=== PATIENT | male | born 1990 | race African-American/Black ===

== ENCOUNTER 2021-05-28 11:51 | Emergency (ER) | payer BC, SELFPAY ==
[2021-05-28] MEDS ORDERED: Ketorolac Tromethamine 30 MG/ML VIAL ONE (12:19)
[2021-05-28] MEDS ORDERED: Cyclobenzaprine 10 MG TAB ONE (12:19)
== END 2021-05-28 12:29 | disposition home or self-care (01) ==
LOC: CSHERS 11:51
DX: M25.512 Pain in left shoulder (principal); F17.210 Nicotine dependence, cigarettes, uncomplicated; X50.1XXA Overexertion from prolonged static or awkward postures, initial encounter
CPT/HCPCS: 96372; 99283; J1885

== ENCOUNTER 2021-06-10 14:30 | Emergency (ER) | payer SELFPAY | END 2021-06-10 14:45 | disposition home or self-care (01) | LOC: CSHERS 14:30 | DX: M54.50 Low back pain, unspecified (principal); F17.210 Nicotine dependence, cigarettes, uncomplicated | CPT/HCPCS: 99283 ==

== ENCOUNTER 2021-06-17 14:45 | Emergency (ER) | payer SELFPAY ==
[2021-06-17] MEDS ORDERED: Metoclopramide HCl 10 MG TAB ONE (16:15)
[2021-06-17] MEDS ORDERED: Ibuprofen 200 MG TAB ONE (16:16)
== END 2021-06-17 16:53 | disposition home or self-care (01) ==
LOC: CSHERS 14:45
DX: R51.9 Headache, unspecified (principal); R11.0 Nausea; F17.210 Nicotine dependence, cigarettes, uncomplicated
CPT/HCPCS: 99283

== ENCOUNTER 2021-08-26 13:57 | Emergency (ER) | payer SELFPAY | END 2021-08-26 19:38 | disposition home or self-care (01) | LOC: CSHERS 13:57 | DX: S33.5XXA Sprain of ligaments of lumbar spine, initial encounter (principal); F17.210 Nicotine dependence, cigarettes, uncomplicated; X58.XXXA Exposure to other specified factors, initial encounter | CPT/HCPCS: 99283 ==

== ENCOUNTER 2021-12-21 14:16 | Emergency (ER) | payer SELFPAY ==
[2021-12-21] MEDS ORDERED: Ketorolac Tromethamine 30 MG/ML VIAL ONE (16:42)
[2021-12-21] MEDS ORDERED: Boostrix 0.5 ML (Tdap) VIAL ONE (16:42)
== END 2021-12-21 17:50 | disposition home or self-care (01) ==
LOC: CSHERS 14:16
DX: S91.331A Puncture wound without foreign body, right foot, initial encounter (principal); F17.210 Nicotine dependence, cigarettes, uncomplicated; X58.XXXA Exposure to other specified factors, initial encounter
CPT/HCPCS: 90471; 90715; 96372; J1885

== ENCOUNTER 2023-03-31 19:55 | Emergency (ER) | payer BC, SELFPAY ==
[2023-03-31 21:37] LABS: SARS-CoV-2 NAA Rapid Test Not Detected (NotDetected)
== END 2023-03-31 20:59 | disposition home or self-care (01) ==
LOC: CSHERS 19:55
DX: J01.90 Acute sinusitis, unspecified (principal); K04.7 Periapical abscess without sinus; K02.9 Dental caries, unspecified; B96.89 Other specified bacterial agents as the cause of diseases classified elsewhere; Z20.822 Contact with and (suspected) exposure to COVID-19; F17.210 Nicotine dependence, cigarettes, uncomplicated
CPT/HCPCS: 99283